=== PATIENT | female | born 1980 | race Caucasian/White ===

== ENCOUNTER → 2017-01-15 | Outpatient (CLI) | payer OTHER | END | disposition home or self-care (01) | LOC: LAB 12:36 | PROVIDERS: ATTEND Anesthesiology | DX: O99.280 Endocrine, nutritional and metabolic diseases complicating pregnancy, unspecified trimester (principal); Z3A.00 Weeks of gestation of pregnancy not specified | CPT/HCPCS: 36415; 84439; 84443 ==

== ENCOUNTER → 2017-04-03 | Outpatient (CLI) | payer OTHER | END | disposition home or self-care (01) | LOC: LAB 07:48 | PROVIDERS: ATTEND Obstetrics & Gynecology | DX: Z34.82 Encounter for supervision of other normal pregnancy, second trimester (principal) | CPT/HCPCS: 36415; 82950; 84443; 85025; 86592 ==

== ENCOUNTER 2017-06-17 19:42 | Outpatient (CLI) | payer OTHER ==
[~2017-06-17] VITALS: Ht 177.8 cm; Wt 68.0 kg
== END 2017-06-17 19:57 | disposition home or self-care (01) ==
LOC: LDOP 19:42
PROVIDERS: ATTEND Obstetrics & Gynecology
DX: O09.513 Supervision of elderly primigravida, third trimester (principal); O36.8130 Decreased fetal movements, third trimester, not applicable or unspecified; O99.283 Endocrine, nutritional and metabolic diseases complicating pregnancy, third trimester; E89.0 Postprocedural hypothyroidism; Z3A.38 38 weeks gestation of pregnancy
CPT/HCPCS: 59025; 99211; G0463

== ENCOUNTER 2017-06-24 12:05 | Outpatient (CLI) | payer OTHER ==
[~2017-06-24] VITALS: Ht 177.8 cm; Wt 67.0 kg
[2017-06-24 12:13] VITALS: BP 109/68
== END 2017-06-24 12:53 | disposition home or self-care (01) ==
LOC: LDOP 12:05
PROVIDERS: ATTEND Obstetrics & Gynecology
DX: O09.513 Supervision of elderly primigravida, third trimester (principal); O62.9 Abnormality of forces of labor, unspecified; O99.283 Endocrine, nutritional and metabolic diseases complicating pregnancy, third trimester; E07.9 Disorder of thyroid, unspecified; Z3A.00 Weeks of gestation of pregnancy not specified
CPT/HCPCS: 59025; 99211; G0463

== ENCOUNTER 2017-06-26 08:44 | Inpatient (IN) | payer OTHER ==
[~2017-06-26] VITALS: Ht 177.8 cm; Wt 67.2 kg
[2017-06-26 09:00] VITALS: BP 123/83
[2017-06-26] MEDS ORDERED: OXYTOCIN 30U/ 0.9% NaCL 500ML 500 ML IV ONE (09:14)
[2017-06-26] MEDS: LACTATED RINGERS 1,000 ML IV SCH ×4 (09:25→15:54)
[2017-06-26] MEDS ORDERED: FENTANYL PF 100 MCG/2ML IV PRN (09:30)
[2017-06-26] MEDS: PLEASE ENTER HEIGHT AND WEIGHT MC SCH ×2 (09:30→17:30)
[2017-06-26] MEDS ORDERED: FENTANYL PF 100 MCG/2ML IVPush PRN (09:30)
[2017-06-26] MEDS ORDERED: NEWBORN KIT ONE (09:45)
[2017-06-26] MEDS ORDERED: LIDOCAINE 1%, 20ML ONE (09:49)
[2017-06-26] MEDS ORDERED: OXYTOCIN 30U/ 0.9% NaCL 500ML 500 ML ONE (09:50)
[2017-06-26] MEDS ORDERED: MISOPROSTOL 200 MCG TABLET ONE (09:50)
[2017-06-26 10:00] LABS: HEMATOCRIT 32.5 % (34.6-47.8); HEMOGLOBIN 11.4 g/dL (11.7-16.4); WHITE BLOOD COUNT 7.8 x10^3/uL (3.4-10)
[2017-06-26] MEDS ORDERED: OXYTOCIN 30U/ 0.9% NaCL 500ML 500 ML IV PRN (10:06)
[2017-06-26] MEDS ORDERED: LEVO25TA4 PO (11:55)
[2017-06-26] MEDS ORDERED: ESOM20CA PO (11:55)
[2017-06-26] MEDS ORDERED: LEVO50TA5 PO (11:55)
[2017-06-26] MEDS ORDERED: FENTANYL PF 100 MCG/2ML ONE (12:53)
[2017-06-26] MEDS ORDERED: FENTANYL/BUPIV./NS/PF 250 ML EPIDCONT ONE (12:53)
[2017-06-26] MEDS ORDERED: BUPIVACAINE 0.25% ONE (12:53)
[2017-06-26] MEDS ORDERED: ONDANSETRON 2MG/ML, 2ML IVPush ONE (14:00)
[2017-06-26] MEDS: D5%-LACTATED RINGERS 1,000 ML IV SCH ×2 (16:36→17:14)
[2017-06-26] MEDS ORDERED: FENTANYL/BUPIV./NS/PF 250 ML EPIDCONT SCH (17:12)
[2017-06-26] MEDS ORDERED: LACTATED RINGERS 1,000 ML IV SCH (17:12)
[2017-06-26] MEDS ORDERED: LACTATED RINGERS 1,000 ML IVBOLUS PRN (17:30)
[2017-06-26] MEDS: OXYTOCIN 30U/ 0.9% NaCL 500ML 500 ML IV SCH (18:06)
[2017-06-26] MEDS ORDERED: ONDANSETRON 2MG/ML, 2ML ONE (18:13)
[2017-06-26] MEDS ORDERED: DOCUSATE 100 MG CAPSULE PO PRN (18:30)
[2017-06-26] MEDS ORDERED: IBUPROFEN 600 MG TABLET PO PRN (18:30)
[2017-06-26] MEDS ORDERED: MISOPROSTOL 200 MCG TABLET PR PRN (18:30)
[2017-06-26] MEDS ORDERED: OXYcodone/APAP 5/325MG TABLET PO PRN ×2 (18:30)
[2017-06-26] MEDS ORDERED: ACETAMINOPHEN 325 MG TABLET PO PRN (18:30)
[2017-06-26] MEDS ORDERED: ONDANSETRON 2MG/ML, 2ML IV PRN (18:30)
[2017-06-26 20:30] VITALS: BP 116/75
[2017-06-26 23:45] VITALS: BP 130/92
[2017-06-27] MEDS: OXYTOCIN 30U/ 0.9% NaCL 500ML 500 ML IV SCH (00:55)
[2017-06-27] MEDS: ACETAMINOPHEN 325 MG TABLET PO PRN ×2 (01:38→08:49)
[2017-06-27 01:55] VITALS: BP 135/95
[2017-06-27 02:19] LABS: HEMATOCRIT 32.5 % (34.6-47.8); HEMOGLOBIN 10.9 g/dL (11.7-16.4); WHITE BLOOD COUNT 11.4 x10^3/uL (3.4-10)
[2017-06-27 08:00] VITALS: BP 105/68
[2017-06-27] MEDS: PRENATAL VIT/IRON/FA 1 EACH TABLET PO SCH ×2 (08:48→09:00)
[2017-06-27] MEDS ORDERED: IBUP-1222 PO (11:03)
[2017-06-27] MEDS ORDERED: OXYC-302 PO (11:04)
== END 2017-06-27 12:35 | disposition home or self-care (01) | DRG 775 ==
LOC: LDIP 08:44 → 2NW 20:18
PROVIDERS: ADMIT Obstetrics & Gynecology; ATTEND Obstetrics & Gynecology
PROC: 10E0XZZ Delivery of Products of Conception, External Approach (ICD-10-PCS; principal; 2017-06-26)
PROC: 00HU33Z Insertion of Infusion Device into Spinal Canal, Percutaneous Approach (ICD-10-PCS; 2017-06-26)
PROC: 3E0R3CZ (ICD-10-PCS; 2017-06-26)
DX: O69.81X0 Labor and delivery complicated by cord around neck, without compression, not applicable or unspecified (principal); E03.9 Hypothyroidism, unspecified; O09.513 Supervision of elderly primigravida, third trimester; Z3A.40 40 weeks gestation of pregnancy; O99.284 Endocrine, nutritional and metabolic diseases complicating childbirth; O76 Abnormality in fetal heart rate and rhythm complicating labor and delivery; O99.62 Diseases of the digestive system complicating childbirth; K92.89 Other specified diseases of the digestive system; Z37.0 Single live birth; K21.9 Gastro-esophageal reflux disease without esophagitis
CPT/HCPCS: 36415; 82803; 85025; 86850; 86900; J2405; J2590; J7120; J7121

== ENCOUNTER → 2017-07-02 | Outpatient (CLI) | payer OTHER ==
[~2017-07-02] MED LIST: ESOM20CA PO; IBUP-1222 PO; LEVO25TA4 PO; LEVO50TA5 PO; OXYC-302 PO
== END | disposition home or self-care (01) ==
LOC: LAB 16:07
PROVIDERS: ATTEND Anesthesiology
DX: E03.9 Hypothyroidism, unspecified (principal)
CPT/HCPCS: 36415; 84439; 84443